=== PATIENT | female | born 1950 | race Caucasian/White ===

== ENCOUNTER 2016-11-09 14:14 | Emergency (ER) | payer OTHER, MEDICARE ==
[~2016-11-09] VITALS: Ht 157.5 cm; Wt 90.7 kg
[~2016-11-09 14:14] MED LIST: ALPRAZOLAM0.5 M4 PO; AMITRIPTYLINE H10 M2 PO; ASPIRIN EC325 M2 PO; B-12500 MC1 PO; BALANCED B COM1 EACH PO; CALTRATE 600 +1 EACH PO; CARVEDILOL25 M1 PO; CENTRUM SILVER1 EAC3 PO; CHLORTHALIDONE25 M1 PO; CHROMIUM PICO200 MC2 PO; CLARITIN10 M1 PO; CLOPIDOGREL75 M1 PO; CO Q-10200 MG PO; EDARBI40 M1 PO; FELODIPINE ER5 MG PO; FIORICET 50-301 EACH PO; GABAPENTIN300 M2 PO; HUMALOG100 UNIT/1; ISOSORBIDE MONO60 M1 PO; MAGNESIUM200 M1 PO; NIACIN500 M6 PO; OMEGA 3-6-9 CO400 MG PO; OMEPRAZOLE40 M1 PO; OSTEO BI-FLEX1 EAC3 PO; SIMVASTATIN10 M1 PO; SYNTHROID137 MCG PO; VIIBRYD40 M1 PO; VITAMIN D31000 UNI2 PO; ZETIA10 M1 PO; ZINC50 M2 PO
[2016-11-09 14:34] LABS: ABSOLUTE BASOPHIL COUNT 0 /CUMM (0.0-0.2); ABSOLUTE EOSINOPHIL COUNT 0.1 /CUMM (0.0-0.7); ABSOLUTE LYMPH COUNT 0.4 /CUMM (1.2-3.4); ABSOLUTE MONOCYTE COUNT 0.2 /CUMM (0.10-0.60); BASOPHIL % 0.1 % (0.0-2.0); EOSINOPHIL % 0.9 % (0-5); HEMATOCRIT 42.7 % (37-47); MEAN CORPUSCULAR HGB 29.1 PG (27.0-31.0); MEAN CORPUSCULAR HGB CONC 34.4 G/DL (33.0-37.0); MEAN CORPUSCULAR VOLUME 84.8 FL (81.0-99.0); MEAN PLATELET VOLUME 8.7 FL (7.4-10.4); PLATELET COUNT 225 /CUMM (130-400); RBC DISTRIBUTION WIDTH 13.7 % (11.5-14.5); RED BLOOD CELL CT 5.04 /CUMM (4.20-5.40); WHITE BLOOD CELL COUNT 10.7 /CUMM (4.8-10.8)
[2016-11-09 14:47] LABS: GRANULOCYTE % 93.6 % (42.2-75.2)
--- NOTE | 2016-11-09 15:13 | RADIOLOGY REPORT ---
EXAMINATION: XR PORTABLE CHEST CLINICAL INFORMATION: Syncope. COMPARISON: CT chest 10/14/2014. TECHNIQUE: Portable AP view of the chest was obtained. FINDINGS: Both lungs are well-expanded and clear of acute process. The heart size and pulmonary vascularity is normal. There are median sternotomy sutures from previous intervention. No gross bony abnormality seen. IMPRESSION: Unremarkable chest exam
[2016-11-09] MEDS ORDERED: VITAMIN D5000 UNIT PO (16:29)
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
[2016-11-09] MEDS ORDERED: MAGNESIUM500 M2 PO (16:31)
[2016-11-09] MEDS ORDERED: VITAMIN B122500 MC1 PO (16:32)
[2016-11-09 18:51] VITALS: BP 136/84
[2016-11-09] MEDS ORDERED: LEVSIN-SL0.125 MG SL (18:54)
[2016-11-09] MEDS ORDERED: ZOFRAN ODT4 M1 SL (18:54)
== END 2016-11-09 18:58 ==
LOC: ERH 14:14
PROVIDERS: Emergency Medicine
DX: R11.2 Nausea with vomiting, unspecified (principal); R10.33 Periumbilical pain; I25.2 Old myocardial infarction
CPT/HCPCS: 93005; 93010; 96374; 96375; J0131; J2765